=== PATIENT | female | born 1990 | race Caucasian/White ===

== ENCOUNTER 2016-08-16 11:40 | Emergency (ER) | payer BC, OTHER ==
[~2016-08-16] VITALS: Ht 157.5 cm; Wt 78.8 kg
[~2016-08-16 11:40] MED LIST: ANTACID LIQUID355 ML PO; DOCUSATE SODIU100 MG PO; ENDOCET 5-3251 EACH PO; FLINTSTONES1 EACH PO; IBUPROFEN800 MG PO; MAALOX ADVANCE355 ML PO; MACROBID100 MG PO; MULTIVITAMIN1 EAC1 PO; NOHOMEMEDS; OXYCODONE-APAP1 EACH PO; TYLENOL EXTRA500 MG PO; [UNRECOGNIZED DRUG - OTHER] PO
[2016-08-16 11:44] VITALS: BP 133/84
[2016-08-16] MEDS ORDERED: ZOFRAN ODT4 MG PO (13:12)
[2016-08-16] MEDS ORDERED: BUSPAR10 MG PO (13:16)
== END 2016-08-16 13:29 | disposition home or self-care (01) ==
LOC: EME 11:40
DX: S06.0X0A Concussion without loss of consciousness, initial encounter (principal); W22.8XXA Striking against or struck by other objects, initial encounter; Z87.891 Personal history of nicotine dependence
CPT/HCPCS: 99281; 99284